=== PATIENT | male | born 2000 | race Caucasian/White ===

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

== ENCOUNTER 2023-06-09 16:00 | Emergency (ER) | payer BC ==
[2023-06-09] MEDS ORDERED: Ciprofloxacin 0.3% Ophth Soln 5 ML Bottle EYERT ONE (16:22)
== END 2023-06-09 17:15 | disposition home or self-care (01) ==
LOC: JD.ED 16:00
DX: H11.31 Conjunctival hemorrhage, right eye (principal); H10.31 Unspecified acute conjunctivitis, right eye; Z88.1 Allergy status to other antibiotic agents; Z79.899 Other long term (current) drug therapy
CPT/HCPCS: 99283; A9270; 99282